=== PATIENT | male | born 1970 | race African-American/Black ===

== ENCOUNTER 2019-08-03 08:58 | Emergency (ER) | payer MEDICARE, MEDICAID ==
[2019-08-03 09:55] LABS: ABSOLUTE EOSINOPHILS # (AUTO) 0.1 10^3/uL (0.0-0.6); ABSOLUTE LYMPHOCYTES (AUTO) 3.3 10^3/uL (0.5-4.7); ABSOLUTE MONOCYTES (AUTO) 0.5 10^3/uL (0.1-1.4); ABSOLUTE NEUT (AUTO) 2.8 10^3/uL (1.7-8.2); BASOPHILS % (AUTO) 0.7 % (0-2); EOSINOPHILS % (AUTO) 1.7 % (0-6); HEMATOCRIT 38.6 % (37.9-51.0); HEMOGLOBIN 13.2 g/dL (13.5-17.0); LYMPHOCYTES % (AUTO) 49.2 % (13-45); MEAN CORPUSCULAR HEMOGLOBIN 31.3 pg (27.0-33.4); MEAN CORPUSCULAR HGB CONC 34.1 g/dL (32.0-36.0); MEAN CORPUSCULAR VOLUME 92 fl (80-97); MONOCYTES % (AUTO) 6.7 % (3-13); PLATELET COUNT 187 10^3/uL (150-450); RED BLOOD COUNT 4.22 10^6/uL (4.35-5.55); RED CELL DISTRIBUTION WIDTH 13.6 % (11.5-14.0); SEGMENTED NEUTROPHILS % (AUTO) 41.7 % (42-78); TOTAL CELLS COUNTED % (AUTO) 100 %; WHITE BLOOD COUNT 6.8 10^3/uL (4.0-10.5)
[2019-08-03 10:12] LABS: APPEARANCE,URINE CLEAR; BILIRUBIN,URINE NEGATIVE (NEGATIVE); COLOR,URINE YELLOW; GLUCOSE, URINE NEGATIVE (NEGATIVE); KETONES,URINE NEGATIVE (NEGATIVE); LEUKOCYTE ESTERASE,URINE NEGATIVE (NEGATIVE); NITRITE,URINE NEGATIVE (NEGATIVE); PROTEIN,URINE NEGATIVE (NEGATIVE)
--- NOTE | 2019-08-03 10:19 | ER Document Report ---
ED General - General Chief Complaint: Suicidal Ideation Stated Complaint: POSSIBLE SUICIDAL IDEATION Time Seen by Provider: 08/03/19 10:18 Information source: Patient Notes: HPI: Patient is a 48-year-old male who states he has a history of bipolar disorder, schizophrenia, and HIV has been off all medications for 3 years. Patient states he has suicidal ideations with a plan to jump off a bridge. He states he has had some auditory hallucinations but denies any active command hallucinations. Patient denies any headache, neck pain, chest pain, abdominal pain, fevers, vomiting, or diarrhea. ROS: See HPI All other review of systems reviewed and otherwise negative Reviewed vital signs and nursing note as charted by RN. PHYSICAL EXAM: CONSTITUTIONAL: Alert and oriented and responds appropriately to questions. Well-appearing; well-nourished HEAD: Normocephalic; atraumatic EYES: PERRL; Conjunctivae clear, sclerae non-icteric ENT: Normal nose; no rhinorrhea; moist mucous membranes; pharynx without lesions noted NECK: Supple without meningismus; non-tender; no cervical lymphadenopathy, no masses CARD: Regular rate and rhythm; no murmurs; symmetric distal pulses RESP: Normal chest excursion without splinting or tachypnea; breath sounds clear and equal bilaterally; no wheezes, no rhonchi, no rales ABD/GI: Normal bowel sounds; non-distended; soft, non-tender; no palpable organomegaly or masses BACK: The back appears normal and is non-tender to palpation EXT: Normal ROM in all joints; non-tender to palpation; no edema SKIN: No acute lesions noted NEURO: CN 2-12 intact; 5/5 bilateral upper and lower extremity strength with sensation intact to light touch TRAVEL OUTSIDE OF THE [place] IN LAST 30 DAYS: No - Related Data Allergies/Adverse Reactions: No Known Allergies Allergy (Verified 08/03/19 09:14) Past Medical History - Social History Smoking Status: Current Every Day Smoker Chew tobacco use (# tins/day): No Frequency of alcohol use: None Drug Abuse: Cocaine Family History: Reviewed & Not Pertinent Patient has suicidal ideation: Yes Patient has homicidal ideation: No Musculoskeletal Medical History: Reports Hx Arthritis Infectious Medical History: Reports: Hx HIV Past Surgical History: Reports: Hx Orthopedic Surgery - Immunizations Hx Diphtheria, Pertussis, Tetanus Vaccination: Yes Physical Exam - Vital signs Vitals: Temp Pulse Resp BP Pulse Ox 97.8 F 79 16 117/77 97 08/03/19 09:02 08/03/19 09:02 08/03/19 09:02 08/03/19 09:02 08/03/19 09:02 Course - Re-evaluation Re-evalutation: Given the history and physical examination, we will order basic psychiatric laboratory profiles as well as a HIV PCR level and a CD4 count to help follow- up. Vital signs are stable. 08/03/19 10:18 EKG shows a heart of 66, normal sinus rhythm, normal axis, no ST elevation or depression 08/03/19 11:59 Labs as recorded. Cocaine positive. Vital signs stable. - Vital Signs Vital signs: Temp Pulse Resp BP Pulse Ox 97.9 F 73 16 100/47 L 100 08/03/19 11:20 08/03/19 11:20 08/03/19 11:20 08/03/19 11:20 08/03/19 11:20 - Laboratory Result Diagrams: 08/03/19 09:30 08/03/19 09:30 Laboratory results interpreted by me: 08/03/19 08/03/19 08/03/19 09:30 09:30 09:30 RBC 4.22 L Hgb 13.2 L Lymph % (Auto) 49.2 H Seg Neutrophils % 41.7 L Urine Urobilinogen 2.0 H Salicylates < 1.0 L Acetaminophen < 10 L Discharge - Discharge Clinical Impression: Suicidal ideation, Cocaine abuse Condition: Fair Disposition: PSYCH HOSP/UNIT
[2019-08-03 10:20] LABS: ADD MANUAL MICROSCOPIC YES; ALBUMIN 4.1 g/dL (3.5-5.0); ALKALINE PHOSPHATASE 73 U/L (38-126); ANION GAP 9 (5-19); ASPARTATE AMINO TRANSFERASE 29 U/L (17-59); BILIRUBIN,TOTAL 0.4 mg/dL (0.2-1.3); BLOOD UREA NITROGEN 18 mg/dL (7-20); CALCIUM 8.9 mg/dL (8.4-10.2); CARBON DIOXIDE 26 mmol/L (22-30); CHLORIDE 106 mmol/L (98-107); GLUCOSE 89 mg/dL (75-110); POTASSIUM 3.7 mmol/L (3.6-5.0); TOTAL PROTEIN 7.8 g/dL (6.3-8.2)
[2019-08-03 10:29] LABS: ACETAMINOPHEN < 10 ug/mL (10-30); ALCOHOL < 10 mg/dL (NONE DETECTED); SALICYLATE < 1.0 mg/dL (2.0-20.0)
[2019-08-03 10:33] LABS: URINE AMPHETAMINES SCREEN NEGATIVE; URINE BARBITURATES SCREEN NEGATIVE; URINE BENZODIAZEPINES SCREEN NEGATIVE; URINE COCAINE SCREEN UNCONFIRMED POSITIVE; URINE MARIJUANA (THC) SCREEN NEGATIVE; URINE METHADONE SCREEN NEGATIVE; URINE PHENCYCLIDINE SCREEN NEGATIVE
[2019-08-03 10:36] LABS: RBC,URINE RARE /HPF; WBC,URINE 0-1 /HPF
--- NOTE | 2019-08-03 14:55 | PSYCHOLOGICAL NOTE ---
Psych Note - Psych Note Date seen by psych provider: 08/03/19 Time seen by psych provider: 14:30 Psych Note: Reason For Consult:Suicidal ideation Consent Permissions:none given Patient reports that he is "very suicidal" and needs help. He discloses he is diagnosed schizoaffective bipolar type and has been off medications for approximately 3 years. He also discloses concern that he has not been taking his medication for HIV and that has turned into AIDS. He confirms that he has a place to live and feels safe there however states that he came to [facility] because he wants to live and knows that if he does not get help he will end up hurting himself. He is currently unemployed Patient is alert and orientated to person, place, time and circumstance. Mood is euthymic with congruent affect; clinician notes patient is laying in the bed on his side with a blanket up to his face. Patient endorses passive suicidal ideation i.e. no plans means or intent. Patient denies homicidal ideation. Delusions are absent and behaviors congruent with an intact reality based presentation i.e. organized and linear thought process. Eye contact is poor. Conversational speech is within normal rate, tone and prosody. Intellectual abilities appear to be within the average range. Attention and concentration are good. Insight, judgment, impulse control are currently good as evidenced by coming in asking for assistance. Clinician contacted [facility]. They confirm they currently have beds available and have reserved a bed for the patient. Patient can present at [facility] at 430pm Diagnosis: Schizoaffective bipolar type per history provided by patient Medication recommendations per [facility]'s contracted psychiatrist Dr. Christopher GE are as follows No medication recommend patient at this time Impression\\plan: Patient is cleared from acute psychiatric services. Patient does not meet IVC criteria per [place] GS 122C. Patient discloses passive suicidal ideation i.e. no plans means or intent. Patient discloses he would like further assistance and confirms he would follow through with treatment with [facility]. Clinician can secured a voluntary bed at the [facility] for 4 PM; patient is highly encouraged to follow through with this placement. Dr. Shipman was consulted to care management of this patient; attending physicians in agreement with recommendations and disposition.
[2019-08-03 16:14] VITALS: BP 104/70
--- NOTE | 2019-08-04 09:41 | EKG REPORT ---
SEVERITY:- NORMAL ECG - SINUS RHYTHM : Confirmed by: Pepe Rodriguez 04-Aug-2019 09:40:45
[2019-08-05 09:29] LABS: HIV-1 RNA PCR QUANT 22000 copies/mL (.)
== END 2019-08-03 16:38 | disposition home or self-care (01) ==
LOC: ER 08:58
DX: R45.851 Suicidal ideations (principal); F14.10 Cocaine abuse, uncomplicated; F25.0 Schizoaffective disorder, bipolar type; B20 Human immunodeficiency virus [HIV] disease; F17.200 Nicotine dependence, unspecified, uncomplicated; Z91.14 Patient's other noncompliance with medication regimen
CPT/HCPCS: 36415; 80053; 80307; 81001; 85025; 87536; 93005; 93010; 99285

== ENCOUNTER 2020-07-02 13:57 | Emergency (ER) | payer MEDICARE ==
--- NOTE | 2020-07-02 14:20 | ER Document Report ---
ED Extremity Problem, Upper - General Chief Complaint: Shoulder Pain Stated Complaint: LEFT SHOULDER,ARM PAIN Time Seen by Provider: 07/02/20 14:08 Primary Care Provider: [facility] [Provider Group] - Follow up as needed Mode of Arrival: Ambulatory Information source: Patient Notes: 49-year-old male presented to ED for complaint of pain to the left shoulder and neck and scapular area. He states his been going on for about 2 or 3 days. He states he woke up with a lot of pain in his shoulder and neck. He states over the last 2 to 3 days he is taking a lot of Aleve. He states he is taking 2 Aleve every 3-4 hours and is almost completed the bottle. He states he smokes 3 cigarettes a day does not drink or use any illicit drugs. 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 He lives with his significant other in case. He states that he is HIV positive. He denies any injuries any lifting or any reason to have pain in this area. TRAVEL OUTSIDE OF THE [place] IN LAST 30 DAYS: No - HPI Patient complains to provider of: Pain, Swelling, Shoulder, Other - Left shoulder neck and scapula Onset: Other - 2 days Recent injury: No Where: Home, Indoors Quality of pain: Sharp, Throbbing Severity of pain: Moderate Pain Level: 3 Context: Other - Woke up with the pain Associated symptoms: None Exacerbated by: Movement, Exertion Relieved by: Nothing Similar symptoms previously: Yes Recently seen / treated by doctor: No - Related Data Allergies/Adverse Reactions: No Known Allergies Allergy (Verified 08/03/19 09:14) Past Medical History - General Information source: Patient - Social History Smoking Status: Current Every Day Smoker Cigarette use (# per day): Yes - 3 cigarettes a day Smoking Education Provided: Yes Frequency of alcohol use: None Drug Abuse: None Occupation: [employer] Lives with: Spouse/Significant other - Children Family History: Reviewed & Not Pertinent Patient has suicidal ideation: No Patient has homicidal ideation: No - Past Medical History Cardiac Medical History: Reports: None Pulmonary Medical History: Reports: None EENT Medical History: Reports: None Neurological Medical History: Reports: None Renal/ Medical History: Reports: None Malignancy Medical History: Reports None GI Medical History: Reports: None Musculoskeletal Medical History: Reports Hx Arthritis Skin Medical History: Reports None Psychiatric Medical History: Reports: None Traumatic Medical History: Reports: None Infectious Medical History: Reports: Hx HIV Past Surgical History: Reports: Hx Orthopedic Surgery - Immunizations Immunizations up to date: Yes Hx Diphtheria, Pertussis, Tetanus Vaccination: Yes Review of Systems - Review of Systems Constitutional: No symptoms reported EENT: No symptoms reported Cardiovascular: No symptoms reported Respiratory: No symptoms reported Gastrointestinal: No symptoms reported Genitourinary: No symptoms reported Male Genitourinary: No symptoms reported Musculoskeletal: Joint pain, Joint swelling, Muscle pain, Muscle stiffness Skin: No symptoms reported Hematologic/Lymphatic: No symptoms reported Neurological/Psychological: No symptoms reported -: Yes All other systems reviewed and negative Physical Exam - Vital signs Vitals: Temp Pulse Resp BP Pulse Ox 97.8 F 74 16 113/75 95 07/02/20 14:04 07/02/20 14:04 07/02/20 14:04 07/02/20 14:04 07/02/20 14:04 Interpretation: Normal - General General appearance: Appears well, Alert - HEENT Head: Normocephalic, Atraumatic Eyes: Normal Pupils: PERRL - Respiratory Respiratory status: No respiratory distress Chest status: Nontender Breath sounds: Normal Chest palpation: Normal - Cardiovascular Rhythm: Regular Heart sounds: Normal auscultation Murmur: No - Abdominal Inspection: Normal Distension: No distension Bowel sounds: Normal Tenderness: Nontender Organomegaly: No organomegaly - Back Back: Normal, Tender - Left side of the neck. No: Vertebra tenderness - Extremities General upper extremity: Normal color, Normal temperature General lower extremity: Normal inspection, Nontender, Normal color, Normal ROM, Normal temperature, Normal weight bearing. No: Aydin's sign Shoulder: Tender, Other - Swelling. No: Limited ROM Arm: Tender Elbow: Normal Forearm: Normal Wrist: Normal Hand: Normal - Neurological Neuro grossly intact: Yes Cognition: Normal Orientation: AAOx4 [place] Coma Scale Eye Opening: Spontaneous [place] Coma Scale Verbal: Oriented [place] Coma Scale Motor: Obeys Commands [place] Coma Scale Total: 15 Speech: Normal Motor strength normal: LUE, RUE, LLE, RLE Sensory: Normal - Psychological Associated symptoms: Normal affect, Normal mood - Skin Skin Temperature: Warm Skin Moisture: Dry Skin Color: Normal Course - Re-evaluation Re-evalutation: 07/02/20 22:28 X-rays were discussed with patient written report of x-rays were given to tyshawn richards. Patient was instructed to follow-up with primary care and/or orthopedics. Patient verbalized understanding and agreement with treatment plan patient was discharged home. Patient did have full range of motion to neck and shoulder at the time of the exam. - Vital Signs Vital signs: Temp Pulse Resp BP Pulse Ox 98.4 F 75 18 120/67 99 07/02/20 16:15 07/02/20 16:15 07/02/20 16:15 07/02/20 16:15 07/02/20 16:15 - Diagnostic Test Radiology reviewed: Image reviewed, Reports reviewed Discharge - Discharge Clinical Impression: Neck pain on left side Left shoulder pain Qualifiers: Chronicity: unspecified Qualified Code(s): M25.512 - Pain in left shoulder Condition: Stable Disposition: HOME, SELF-CARE Additional Instructions: You was seen today for pain in your left side of your neck and shoulder. You state you did not have any injuries. You do have full range of motion to your shoulder and your neck. X-rays do not show any radiological signs do not show any acute injuries of any kind. You state you woke up like this with couple days ago. Exercise Program for the Shoulder Since the shoulder moves in so many directions, the joint attachment is weak. Muscles provide most of the stability to the shoulder. You must exercise your shoulder to prevent painful instability or stiffening. PASSIVE - These may be begun within a few days of the injury. While standing, lean forward, allowing the arm to hang down towards the floor. Move the arm in small circles while slowly twisting your chest towards and away from the hanging arm. Do this for one minute. ACTIVE - These may be performed when the doctor gives permission. Begin with the arms at the sides. Raise the arms forward (shoulder's width apart) until they reach shoulder level. Then slowly swing both arms back until they are aiming straight out away from each other. Then bring them forward again, and finally, lower them to your sides. Repeat 20 to 30 times. As you improve, put weights in your hands for the exercise. Start with one pound, and work up to 10 pounds. Never use more than is comfortable. Athletes may work up to 30 pounds. Ibuprofen Ibuprofen is an excellent, safe drug for pain control. In addition, it has potent antiinflammatory effects which are beneficial, especially in the treatment of injuries, arthritis, or tendonitis. It's best to take ibuprofen with food. Persons with ulcer disease or allergy to aspirin should notify their physician of this before taking ibuprofen. Take the medication exactly as prescribed. Don't take additional doses unless instructed to do so by your doctor. If you develop wheezing, shortness of breath, hives, faintness, stomach pain, vomiting, or dark black stools, return for re-evaluation at once. Muscle Relaxers Muscle relaxing medications are usually prescribed for acute muscle spasm or injury to the neck and back. They are often combined with antiinflammatory pain medication for increased relief. You may stop the muscle relaxer when the pain and stiffness have improved. Start the medication again if spasms recur. Muscle relaxers may cause drowsiness, especially with the first dose. Do not operate machinery or drive while under the effects of the medication. Most muscle relaxers last up to 24 hours. Do not combine the medication with alcohol. Ice Packs Apply ice packs frequently against the painful area. Many different schedules are recommended, such as "20 minutes on, 20 minutes off" or "one hour ice, two hours rest." If you need to work, you may need to go longer between ice treatments. You should plan to have the area ice packed AT LEAST one fourth of the time. The ice should be applied over the wrap, tape, or splint, or over a layer of cloth -- not directly against the skin. Some ice bags have a built-in cloth and can be put directly on the skin. Warm Packs After approximately two days, apply gentle heat (such as a heating pad or hot water bottle) for about 20 to 30 minutes about every two hours -- at least four times daily. Warmth and elevation will help you make a more rapid recovery, and will ease the pain considerably. Do not use HOT heat, and never apply heat for longer than 30 minutes. The continuous heat can invisibly damage skin and muscles -- even when no burn is seen on the surface. Damaged muscles can make you MORE sore. FOLLOW-UP CARE: If you have been referred to a physician for follow-up care, call the physicians office for an appointment as you were instructed or within the next two days. If you experience worsening or a significant change in your symptoms, notify the physician immediately or return to the Emergency Department at any time for re-evaluation. Prescriptions: Cyclobenzaprine HCl [Flexeril 10 mg Tablet] 10 mg PO TIDP PRN #15 tab PRN Reason: Referrals: [facility] [Provider Group] - Follow up as needed
--- NOTE | 2020-07-02 14:59 | RADIOLOGY REPORT (SQ) ---
EXAM DESCRIPTION: SCAPULA LEFT; SHOULDER LEFT 2 OR MORE VIEWS IMAGES COMPLETED DATE/TIME: 07/02/2020 1:40 pm REASON FOR STUDY: pain swelling COMPARISON: None. NUMBER OF VIEWS: Five views TECHNIQUE: Internal rotation, external rotation, and Y view images acquired of the left shoulder. A P and axial views of the left scapula. LIMITATIONS: None. FINDINGS: MINERALIZATION: Normal. BONES: No acute fracture. No worrisome bone lesions. No significant osteophytes. GLENOHUMERAL JOINT: No significant findings. ACROMIOCLAVICULAR JOINT: No large osteophytes. SOFT TISSUES: No calcifications. VISUALIZED RIBS, SPINE, AND LUNG: No other significant finding. OTHER: No other significant finding. IMPRESSION: No acute fracture or dislocation of the left shoulder or scapula. TECHNICAL DOCUMENTATION: JOB ID: [id number] 2010 [employer]- All Rights Reserved Reading location - IP/workstation name: [email or web address]
--- NOTE | 2020-07-02 14:59 | RADIOLOGY REPORT (SQ) ---
EXAM DESCRIPTION: SCAPULA LEFT; SHOULDER LEFT 2 OR MORE VIEWS IMAGES COMPLETED DATE/TIME: 07/02/2020 1:40 pm REASON FOR STUDY: pain swelling COMPARISON: None. NUMBER OF VIEWS: Five views TECHNIQUE: Internal rotation, external rotation, and Y view images acquired of the left shoulder. A P and axial views of the left scapula. LIMITATIONS: None. FINDINGS: MINERALIZATION: Normal. BONES: No acute fracture. No worrisome bone lesions. No significant osteophytes. GLENOHUMERAL JOINT: No significant findings. ACROMIOCLAVICULAR JOINT: No large osteophytes. SOFT TISSUES: No calcifications. VISUALIZED RIBS, SPINE, AND LUNG: No other significant finding. OTHER: No other significant finding. IMPRESSION: No acute fracture or dislocation of the left shoulder or scapula. TECHNICAL DOCUMENTATION: JOB ID: [id number] 2010 [employer]- All Rights Reserved Reading location - IP/workstation name: [email or web address]
--- NOTE | 2020-07-02 14:59 | RADIOLOGY REPORT (SQ) ---
EXAM DESCRIPTION: CERV SP 4 OR 5 VIEWS IMAGES COMPLETED DATE/TIME: 07/02/2020 1:40 pm REASON FOR STUDY: pain swelling COMPARISON: None. NUMBER OF VIEWS: Five views. TECHNIQUE: AP, lateral, obliques and odontoid radiographic images acquired of the cervical spine. LIMITATIONS: None. FINDINGS: MINERALIZATION: Normal. ALIGNMENT: Anatomic. VERTEBRAE: Vertebral bodies of normal height. DISCS: No significant osteophytes or sclerosis. Disc height maintained. FORAMINA: No osteophytes or foraminal narrowing. LATERAL AND POSTERIOR ELEMENTS: Facets, lateral masses and spinous processes without significant find ings. HARDWARE: None in the spine. SOFT TISSUES: No masses or calcifications. Lung apices clear. OTHER: No other significant finding. IMPRESSION: NO SIGNIFICANT RADIOGRAPHIC FINDING IN THE CERVICAL SPINE. TECHNICAL DOCUMENTATION: JOB ID: [id number] [employer]- All Rights Reserved Reading location - IP/workstation name: [email or web address]
[2020-07-02 16:16] VITALS: BP 120/67
== END 2020-07-02 16:15 | disposition home or self-care (01) ==
LOC: ER 13:57
DX: M25.512 Pain in left shoulder (principal); M54.2 Cervicalgia; F17.210 Nicotine dependence, cigarettes, uncomplicated; B20 Human immunodeficiency virus [HIV] disease
CPT/HCPCS: 72050; 99284